=== PATIENT | female | born 1995 | race Caucasian/White ===

== ENCOUNTER → 2018-12-05 | Outpatient (CLI) | payer BC, OTHER ==
[~2018-12-05] MED LIST: ALBU1.25 IH; DOCU100C37 PO; IBUP-1780 PO; MULT-228 PO; OXYC-465 PO
--- NOTE | 2018-12-05 10:36 | Diagnostic Imaging Report ---
PROCEDURE: US Gallbladder. TECHNIQUE: Multiple real-time grayscale images were obtained over the right upper quadrant in various projections. INDICATION: Right upper quadrant pain. The liver is normal in size at 16.0 cm. No discrete liver mass is identified. The portal vein is patent and shows normal direction of flow. The gallbladder is without stones or sludge. No wall thickening or biliary ductal dilatation is identified. The pancreas is unremarkable. Right kidney is unremarkable. No calculi or hydronephrosis is identified. There is no ascites. IMPRESSION: Unremarkable gallbladder ultrasound. Dictated by: Dictated on workstation # [id number]
== END ==
LOC: RAD 07:46
PROVIDERS: ATTEND Obstetrics & Gynecology
DX: R10.11 Right upper quadrant pain (principal)
CPT/HCPCS: 76705

== ENCOUNTER 2019-03-08 10:19 | Outpatient (CLI) | payer BC ==
--- NOTE | 2019-03-08 10:27 | NUR ---
PAULO LUCERO presented to unit from ED, accompanied by family, with c/o RH NEGATIVE. Patient to room 315 while Rhogam is ordered and prepared.
--- NOTE | 2019-03-08 10:45 | NUR ---
Rhogam administered, see intervention.
--- NOTE | 2019-03-08 10:47 | NUR ---
Patient discharged at this time and ambulated from the unit accompanied by family. No signs or symptoms of distress noted.
== END 2019-03-08 10:47 | disposition home or self-care (01) ==
LOC: WSo 10:19
PROVIDERS: ATTEND Obstetrics & Gynecology
DX: Z31.82 Encounter for Rh incompatibility status (principal)
CPT/HCPCS: 96372

== ENCOUNTER 2019-04-28 13:43 | Outpatient (CLI) | payer BC ==
[~2019-04-28] VITALS: Ht 177.8 cm; Wt 78.9 kg
--- NOTE | 2019-04-28 13:30 | NUR ---
PAULO LUCERO presented to unit via ambulation from Dr. story, accompanied by mother, with c/o CONTRACTIONS. PAULO LUCERO weighed, gowned, voided, and to bed. EFHM and TOCO applied, VS taken. PAULO LUCERO oriented to bed controls, call light, TV, heat, and A/C controls.
[2019-04-28 13:40] VITALS: BP 118/72
[~2019-04-28 13:43] MED LIST changes: +D5 LR IV SOLUTION 1,000 ML IV ONE
--- NOTE | 2019-04-28 13:45 | NUR ---
Dr. Chino on unit. Notified of pt arrival. Pt had just been seen in office. Orders rec'd.
[2019-04-28 14:59] LABS: BASOPHILS % (AUTO) 0 % (0-10); EOSINOPHILS # (AUTO) 0.1 10^3/uL (0.0-0.3); EOSINOPHILS % (AUTO) 1 % (0-10); HEMATOCRIT 30 % (35-52); HEMOGLOBIN 9.8 G/DL (11.5-16.0); LYMPHOCYTES # (AUTO) 1.4 X 10^3 (1.0-4.0); LYMPHOCYTES % (AUTO) 20 % (12-44); MEAN CORPUSCULAR HEMOGLOBIN 29 PG (25-34); MEAN CORPUSCULAR HGB CONC 33 G/DL (32-36); MEAN CORPUSCULAR VOLUME 88 FL (80-99); MEAN PLATELET VOLUME 11.1 FL (7.4-10.4); MONOCYTES # (AUTO) 0.5 X 10^3 (0.0-1.0); MONOCYTES % (AUTO) 7 % (0-12); NEUTROPHILS # (AUTO) 5.1 X 10^3 (1.8-7.8); NEUTROPHILS % (AUTO) 72 % (42-75); PLATELET COUNT 132 10^3/uL (130-400); RED CELL DISTRIBUTION WIDTH 12.5 % (10.0-14.5)
[2019-04-28] MEDS ORDERED: D5 LR IV SOLUTION 1,000 ML IV SCH (15:00)
[2019-04-28 15:25] VITALS: BP 112/74
--- NOTE | 2019-04-28 18:30 | NUR ---
Discharge instructions explained to pt with copy provided to pt. Pt verbalizes understanding of instructions, signs to verify. Denies questions or concerns at this time. Ambulates off unit accompanied by mother to private vehicle with all personal belongings. No s/s of distress noted.
--- NOTE | 2019-04-29 08:04 | Physician Query-Final Dx ---
CATHY VILLAGOMEZ 04/29/19 0804: Clinic Account Progress/Dx Physician Query: Please give diagnosis Please include weeks of gestation Date of Service Apr 28, 2019 at 13:43 KALA ZIMMERMAN MD 04/29/19 1710: Clinic Account Progress/Dx DIAGNOSIS: Diagnosis 36 weeks with false labor CATHY VILLAGOMEZ Apr 29, 2019 08:04 KALA ZIMMERMAN MD Apr 29, 2019 17:10
== END 2019-04-28 18:30 | disposition home or self-care (01) ==
LOC: LDRP 13:43 → WSo 13:43
PROVIDERS: ATTEND Obstetrics & Gynecology
DX: O47.03 False labor before 37 completed weeks of gestation, third trimester (principal); Z3A.36 36 weeks gestation of pregnancy
CPT/HCPCS: 36415; 85025; 96360; 96361; 99213

== ENCOUNTER 2019-05-09 10:20 | Inpatient (IN) | payer BC ==
[2019-05-09] VITALS (38 sets, daily range): BP systolic 88–216; BP diastolic 49–93
[~2019-05-09] VITALS: Ht 175.3 cm; Wt 78.9 kg
[~2019-05-09 10:20] MED LIST changes: -D5 LR IV SOLUTION 1,000 ML IV ONE
--- NOTE | 2019-05-09 10:20 | NUR ---
PAULO LUCERO presented to unit via ambulation from ED, accompanied by s/o, with c/o PRESSURE 38 WKS PREG. PAULO LUCERO weighed, gowned, voided, and to bed. EFHM and TOCO applied, VS taken. PAULO LUCERO oriented to bed controls, call light, TV, heat, and A/C controls.
[2019-05-09] MEDS ORDERED: D5 LR IV SOLUTION 1,000 ML IV SCH (11:07)
[2019-05-09] MEDS ORDERED: MINERAL OIL CONCENTRATE 99.9% 15 ML UDC TOP PRN (11:15)
[2019-05-09 11:41] LABS: BILIRUBIN,URINE NEGATIVE (NEGATIVE); CLARITY,URINE CLEAR; COLOR,URINE YELLOW; GLUCOSE, URINE (UA) NEGATIVE (NEGATIVE); KETONES,URINE NEGATIVE (NEGATIVE); LEUKOCYTE ESTERASE ,URINE NEGATIVE (NEGATIVE); NITRITE,URINE NEGATIVE (NEGATIVE); PH,URINE 7 (5-9); PROTEIN,URINE NEGATIVE (NEGATIVE); UROBILINOGEN,URINE NORMAL (NORMAL)
[2019-05-09 11:42] LABS: BASOPHILS % (AUTO) 0 % (0-10); EOSINOPHILS # (AUTO) 0.1 10^3/uL (0.0-0.3); EOSINOPHILS % (AUTO) 1 % (0-10); HEMATOCRIT 31 % (35-52); HEMOGLOBIN 10.2 G/DL (11.5-16.0); LYMPHOCYTES # (AUTO) 1.2 X 10^3 (1.0-4.0); LYMPHOCYTES % (AUTO) 18 % (12-44); MEAN CORPUSCULAR HEMOGLOBIN 29 PG (25-34); MEAN CORPUSCULAR HGB CONC 33 G/DL (32-36); MEAN CORPUSCULAR VOLUME 88 FL (80-99); MONOCYTES # (AUTO) 0.5 X 10^3 (0.0-1.0); MONOCYTES % (AUTO) 7 % (0-12); NEUTROPHILS # (AUTO) 5.2 X 10^3 (1.8-7.8); NEUTROPHILS % (AUTO) 74 % (42-75); PLATELET COUNT 161 10^3/uL (130-400); RED CELL DISTRIBUTION WIDTH 12.4 % (10.0-14.5)
[2019-05-09 11:47] LABS: BACTERIA,URINE TRACE /HPF
[2019-05-09] MEDS ORDERED: LACTATED RINGERS 1,000 ML IV ONE ×2 (11:57→14:24)
[2019-05-09] MEDS ORDERED: SUFENTA 0.6MCG/ML BUPIVA 0.125 100 ML ONE (12:41)
[2019-05-09] MEDS ORDERED: fentaNYL INJECTION 100 MCG/2 ML AMP ONE (13:41)
[2019-05-09] MEDS ORDERED: CATHETER FLUSH 10 ML SYR IV SCH ×2 (14:00→22:00)
[2019-05-09] MEDS ORDERED: NALOXONE 0.4 MG/ML 1 ML (NARCAN) VIAL IV PRN ×2 (14:30)
[2019-05-09] MEDS ORDERED: ONDANSETRON 4 MG/2 ML (SDV) Z0FRAN IV PRN (14:30)
[2019-05-09] MEDS ORDERED: EPIDURAL (SUFENTA 0.6MCG/ML BUPIVA 0.125%) 100 ML BAG EPI PRN (14:30)
[2019-05-09] MEDS ORDERED: METOCLOPRAMIDE INJ 10 MG/2 ML (REGLAN) IV PRN (14:30)
[2019-05-09] MEDS ORDERED: diphenhydrAMINE 50 MG/ML INJ (BENADRYL) IV PRN (14:30)
[2019-05-09] MEDS ORDERED: LIDOCAINE/EPI 2% 1:200,00 (XYLOCAINE) 10 ML VIAL ONE (17:04)
[2019-05-09] MEDS ORDERED: OXYTOCIN/NORMAL SALINE 500 ML IV ONE (17:04)
[2019-05-09] MEDS ORDERED: OXYTOCIN/NORMAL SALINE 500 ML IV SCH ×2 (17:15→19:32)
--- NOTE | 2019-05-09 17:30 | NUR ---
DR ASHTON HERE. SVE BY DR ASHTON. 7-8CM. REPOSTIONED TO LEFT SIDE. S/O AT BEDSIDE.
--- NOTE | 2019-05-09 17:47 | History & Physical-OB ---
OB - Chief Complaint & HPI Date/Time Date of Admission: Date of Admission: May 09, 2019 at 10:55 am Date seen by a Provider: May 09, 2019 Time Seen by a Provider: 11:30 Chief Complaint/History Hx : 2 Hx Para: 1 Expected Date of Delivery: May 24, 2019 Gestational Age in Weeks: 37 Gestational Age in Days: 6 Other reason for admission: Patient of Dr. Chino who is unavailable presents 4-5 cm, with irregular contractions. Reports history of going quickly in labor and living 45 min away. Admission Nurse Assessment Rev: Yes Allergies and Home Medications Allergies Coded Allergies: vancomycin (Verified Allergy, Intermediate, ANAPHYLAXIS, 05/14/15) Lips swelled, head itching. Infusion stopped. penicillin (Verified Allergy, Mild, 03/22/15) swelling Home Medications Albuterol Sulfate 1.25 Mg/3 Ml Vial.neb, 1.25 MG IH UD Prescribed by: ALBER FUENTES on 04/19/15 1203 Docusate Sodium 100 Mg Capsule, 100 MG PO BID Prescribed by: KALA HOLLAND on 05/14/15 0750 Multivitamin 1 Each Tab.chew, 1 EACH PO DAILY Prescribed by: ALBER FUENTES on 04/19/15 1203 Patient Home Medication List Home Medication List Reviewed: Yes OB - History Hx of Present Care: Yes Ultrasounds: Normal mid trimester US Obstetrical Complications: None Medical Complications: None Delivery History Hx Blood Disorders: No Adverse Rxn to Tranfusion: No Patient Past Medical History n/a Social History/Family History Recent Infectious Disease Expo: No Alcohol Use: Denies Use Recreational Drug Use: No Immunizations Hepatitis A: Yes Hepatitis B: Yes Tetanus Booster (TDap): Less than 5yrs Date of Influenza Vaccine: Apr 19, 2014 OB - Admission Exam Physical Exam HEENT: NCAT Heart: Rhythm Normal Lungs: Clear Extremities: Normal Reflexes: Normal Cervical Dilatation: 5cm Effacement: 75% Station: -1 Membranes: Intact Heart Rate: 130's Accelerations: Accelerations Present Decelerations: No Decelerations Short Term Variability: Present Care Home Variability: Average (6-25) Contractions on Admission: 6-10 Minutes Apart Intensity: Moderate Labs Laboratory Tests Test 05/09/19 10:50 05/09/19 11:20 Range/Units Urine Color YELLOW Urine Clarity CLEAR Urine pH 7 5-9 Urine Specific [place] 1.010 L 1.016-1.022 Urine Protein NEGATIVE NEGATIVE Urine Glucose (UA) NEGATIVE NEGATIVE Urine Ketones NEGATIVE NEGATIVE Urine Nitrite NEGATIVE NEGATIVE Urine Bilirubin NEGATIVE NEGATIVE Urine Urobilinogen NORMAL NORMAL MG/DL Urine Leukocyte Esterase NEGATIVE NEGATIVE Urine RBC (Auto) NEGATIVE NEGATIVE Urine RBC NONE /HPF Urine WBC 2-5 /HPF Urine Squamous Epithelial Cells 2-5 /HPF Urine Crystals NONE /LPF Urine Bacteria TRACE /HPF Urine Casts NONE /LPF Urine Mucus NEGATIVE /LPF Urine Culture Indicated NO White Blood Count 7.0 4.3-11.0 10^3/uL Red Blood Count 3.52 L 4.35-5.85 10^6/uL Hemoglobin 10.2 L 11.5-16.0 G/DL Hematocrit 31 L 35-52 % Mean Corpuscular Volume 88 80-99 FL Mean Corpuscular Hemoglobin 29 25-34 PG Mean Corpuscular Hemoglobin Concent 33 32-36 G/DL Red Cell Distribution Width 12.4 10.0-14.5 % Platelet Count 161 130-400 10^3/uL Mean Platelet Volume 11.0 H 7.4-10.4 FL Neutrophils (%) (Auto) 74 42-75 % Lymphocytes (%) (Auto) 18 12-44 % Monocytes (%) (Auto) 7 0-12 % Eosinophils (%) (Auto) 1 0-10 % Basophils (%) (Auto) 0 0-10 % Neutrophils # (Auto) 5.2 1.8-7.8 X 10^3 Lymphocytes # (Auto) 1.2 1.0-4.0 X 10^3 Monocytes # (Auto) 0.5 0.0-1.0 X 10^3 Eosinophils # (Auto) 0.1 0.0-0.3 10^3/uL Basophils # (Auto) 0.0 0.0-0.1 10^3/uL OB - Assessment/Plan/Diagnosis Assessment Assessment: active labor Admission Dx 23 yo @ 37.6 weeks Active labor GBS neg Admission Status: Inpatient Order (span 2 midnights) Reason for Inpatient Admission: Active labor at term Plan Plan: Expectant Management SOBIA ASHTON DO May 09, 2019 5:47 pm
--- NOTE | 2019-05-09 19:00 | NUR ---
Parsons catheter not in place as this rn assumes care.
--- NOTE | 2019-05-09 19:37 | OB Labor & Delivery Record ---
L&D History Date of Service Date of Service: May 09, 2019 History Expected Date of Delivery: May 24, 2019 Gestational Age in Weeks: 37 Hx : 2 Hx Para: 1 Complications Events: Routine care Operative Indications (Cesarea: N/A-Vaginal Delivery Intrapartal Events: None L&D Stage1 Stage One Onset of Labor - Date: May 09, 2019 Monitors and Tracing Skilled Nursing Variability: Average (6-10) Short Term Variability: Present Presentation: Vertex Vital Signs VS - Last 72 Hours, by Label 05/09/19 05/09/19 05/09/19 05/09/19 10:40 12:05 13:10 13:15 Temp 98.4 Pulse 111 100 125 120 Resp 20 20 20 20 B/P (MAP) 121/81 (94) 126/76 (93) 136/92 (107) 130/90 (103) O2 Delivery Room Air Room Air Room Air Room Air 05/09/19 05/09/19 05/09/19 05/09/19 13:20 13:25 13:30 13:35 Pulse 99 88 91 95 Resp 20 20 20 20 B/P (MAP) 100/59 (73) 88/49 (62) 130/93 (105) 129/81 (97) Pulse Ox 99 98 99 O2 Delivery Room Air Room Air Room Air Room Air 05/09/19 05/09/19 05/09/19 05/09/19 13:40 13:45 13:50 13:55 Pulse 99 100 96 86 Resp 20 20 20 18 B/P (MAP) 115/66 (82) 89/53 (65) 90/55 (67) 108/66 (80) Pulse Ox 99 99 97 97 O2 Delivery Room Air Room Air Room Air Room Air 05/09/19 05/09/19 05/09/19 05/09/19 14:00 14:05 14:10 14:15 Pulse 84 85 99 99 Resp 18 18 18 18 B/P (MAP) 121/67 (85) 108/76 (87) 130/73 (92) 113/62 (79) Pulse Ox 99 100 100 100 O2 Delivery Room Air Room Air Room Air Room Air 05/09/19 05/09/19 05/09/19 05/09/19 14:30 14:45 15:00 15:15 Pulse 79 79 78 78 Resp 18 18 18 18 B/P (MAP) 216/91 (132) 108/63 (78) 105/67 (80) 110/73 (85) Pulse Ox 100 100 100 100 O2 Delivery Room Air Room Air Room Air Room Air 05/09/19 05/09/19 05/09/19 05/09/19 15:30 15:45 16:00 16:15 Pulse 85 82 80 81 Resp 18 18 18 18 B/P (MAP) 118/76 (90) 112/74 (87) 110/70 (83) 119/77 (91) Pulse Ox 98 99 100 100 O2 Delivery Room Air Room Air Room Air Room Air 05/09/19 05/09/19 05/09/19 05/09/19 16:30 16:45 17:10 17:20 Temp 98.8 Pulse 85 83 82 93 Resp 18 18 18 18 B/P (MAP) 114/72 (86) 121/80 (94) 122/73 (89) 111/70 (84) Pulse Ox 100 100 100 100 O2 Delivery Room Air Room Air Room Air Room Air 05/09/19 05/09/19 05/09/19 05/09/19 17:35 17:52 18:05 18:25 Pulse 81 82 82 99 Resp 18 18 18 18 B/P (MAP) 116/72 (87) 126/76 (93) 121/72 (88) 134/86 (102) Pulse Ox 100 100 100 100 O2 Delivery Room Air Room Air Room Air Room Air 05/09/19 05/09/19 18:35 19:05 Pulse 94 90 Resp 20 20 B/P (MAP) 133/77 (95) 126/72 (90) Pulse Ox 100 O2 Delivery Room Air Room Air Rupture of Membranes Spontaneous Ruture of Membrane: No Amniotic Membrane Rupture Time: 14:15 Amniotic Membrane Fluid Desc.: Clear Vaginal Bleeding Description: Normal Show Induction/Anesthesia Epidural Cath Placement - Time: 1326 Progress/Notes Patient requested epidural and received due to discomfort with contractions and more pressure. After patient was comfortable AROM and Pitocin augmentation used to progress to complete and +2 station L&D Stage2 Stage Two Stage II Date: May 09, 2019 Monitors and Tracing Monitor Mode: External Monitor Accelerations: Uniform Monitor Decelerations: Variable Skilled Nursing Variability: Average (6-10) Short Term Variability: Present Position: Right Occiput Anterior Presentation: Vertex Cord Descript/Complications Cord Vessel Description: 3 Vessels Complications nuchal cord reduced x 1 Delivery Type Infant Delivery Method: Spontaneous Vaginal Anterior Shoulder: Right Episiotomy/Perineal Laceration Laceraction(s)/Extensions: Yes Episiotomy Description: Midline Degree (describe repair) midline episiotomy repaired using 3-0 rapide and 2-0 vicryl suture Condition of Infant Delivery 1 minute Comment: 9 5 minute Comment: 9 Notes Live female infant weight 7lbs 7oz Condition of Condition of : Living Exam: No Observed Abnormalities Resuscitation Resuscitation: N/A - Spontaneous Resp L&D Stage3 Stage Three Stage III Date: May 09, 2019 Pictocin Pitocin Administration Comment: 30 mu wide open at delivery of placenta Placenta Delivery Placenta Delivery: Spontaneous Delivery Summary Summary Estimated blood loss (mL): 300 Attending at delivery: Sobia Ashton DO Condition of Delivery Examined: Cervix Examined, Uterus Explored Post Hemorrhage: No Condition of Mother stable Condition of Infant (s) stable SOBIA ASHTON DO May 09, 2019 7:37 pm
[2019-05-09] MEDS ORDERED: DIBUCAINE (NUPERCAINAL) 1% OINT 30 GM TOP PRN (19:45)
[2019-05-09] MEDS ORDERED: MEASLES,MUMPS,RUBELLA 1 EA INJ SQ ONE (19:45)
[2019-05-09] MEDS ORDERED: BENZOCAINE/MENTHOL (DERMOPLAST) 56 ML CAN TP PRN (19:45)
[2019-05-09] MEDS ORDERED: TETANUS,DIPTH,PERTUSS P/F (BOOSTRIX) 0.5 ML VIAL IM ONE (19:45)
[2019-05-09] MEDS ORDERED: WITCH HAZEL(TUCKS) 40 EA JAR TOP PRN (19:45)
[2019-05-09] MEDS: IBUPROFEN 600 MG (MOTRIN) TAB PO SCH (19:55)
--- NOTE | 2019-05-09 21:35 | NUR ---
Epidural cath d/c tip in tact, site wnl and left O/A, asymptomatic per pt report, will cont to monitor.
--- NOTE | 2019-05-09 21:40 | NUR ---
Pericare pads changed, pt to room 310 via wc accompanied by this rn and family, oriented to call system and surroundings, denies needs or concerns, will cont to monitor.
[2019-05-09] MEDS: HYDROcodone/APAP 5 MG/325 MG (LORTAB) TAB PO PRN ×2 (22:43→23:30)
[2019-05-10] MEDS: IBUPROFEN 600 MG (MOTRIN) TAB PO SCH ×4 (02:19→19:52)
[2019-05-10 02:21] VITALS: BP 121/70
[2019-05-10 06:44] VITALS: BP 117/79
[2019-05-10 06:48] LABS: BASOPHILS % (AUTO) 0 % (0-10); EOSINOPHILS # (AUTO) 0.1 10^3/uL (0.0-0.3); EOSINOPHILS % (AUTO) 1 % (0-10); HEMATOCRIT 31 % (35-52); HEMOGLOBIN 10.2 G/DL (11.5-16.0); LYMPHOCYTES # (AUTO) 2.2 X 10^3 (1.0-4.0); LYMPHOCYTES % (AUTO) 19 % (12-44); MEAN CORPUSCULAR HEMOGLOBIN 28 PG (25-34); MEAN CORPUSCULAR HGB CONC 33 G/DL (32-36); MEAN CORPUSCULAR VOLUME 88 FL (80-99); MEAN PLATELET VOLUME 10.3 FL (7.4-10.4); MONOCYTES # (AUTO) 0.8 X 10^3 (0.0-1.0); MONOCYTES % (AUTO) 7 % (0-12); NEUTROPHILS # (AUTO) 8.4 X 10^3 (1.8-7.8); NEUTROPHILS % (AUTO) 73 % (42-75); PLATELET COUNT 154 10^3/uL (130-400); RED CELL DISTRIBUTION WIDTH 12.6 % (10.0-14.5); WHITE BLOOD COUNT 11.5 10^3/uL (4.3-11.0)
[2019-05-10 07:20] VITALS: BP 132/97
[2019-05-10] MEDS: FERROUS SULF 325 MG (IRON) TAB PO SCH (07:20)
[2019-05-10] MEDS: PRENATAL VITAMIN 1 EA TAB PO SCH (07:20)
[2019-05-10] MEDS: DOCUSATE SODIUM 100 MG (COLACE) CAP PO SCH ×2 (07:20→19:52)
--- NOTE | 2019-05-10 07:20 | NUR ---
lights dimmed, awake, sitting up resting in bed with swaddled and placed at her feet . s/o sleeping in bed. vitals taken. AM meds given see emar. pericare ointment, spray, and tucks given as ordered. verbalized understanding of administration encouraged patient to notify me for help or questions. denies further need. fresh ice water placed at bedside.
--- NOTE | 2019-05-10 09:31 | Postpartum Progress Note ---
Note Note Day # 1 Subjective: Patient is without complaints. Ambulating, voiding. Tolerating a regular diet without nausea or vomiting. Normal lochia. Pain is well controlled with oral pain medications. Objective: Physical Exam: General - Alert and oriented, no apparent distress Abdomen - Soft, appropriately tender to palpation, non-distended, fundus firm at umbilicus Extremities - no edema, negative Judy's bilaterally Assessment: PPD 1 NVD Plan: Routine care. Encourage breast feeding. Encourage ambulation. Ferrous sulfate supplementation. Plan for discharge tomorrow Vitals - Labs Vital Signs - I&O Vital Signs Date Time Temp Pulse Resp B/P (MAP) Pulse Ox O2 Delivery O2 Flow Rate FiO2 05/10/19 07:20 98.8 70 20 132/97 (109) Room Air 05/10/19 06:44 97.8 82 18 117/79 (92) 99 Room Air 05/10/19 02:21 98.7 82 18 121/70 (87) 98 Room Air 05/09/19 20:15 98.9 67 115/57 (76) 05/09/19 20:00 99.2 81 117/63 (81) Room Air 05/09/19 19:45 99.5 83 134/83 (100) Room Air 05/09/19 19:30 99.7 98 18 130/69 (89) Room Air 05/09/19 19:05 90 20 126/72 (90) Room Air 05/09/19 19:05 90 126/72 (90) 05/09/19 18:35 94 20 133/77 (95) 100 Room Air 05/09/19 18:25 99 18 134/86 (102) 100 Room Air 05/09/19 18:05 82 18 121/72 (88) 100 Room Air 05/09/19 17:52 82 18 126/76 (93) 100 Room Air 05/09/19 17:35 81 18 116/72 (87) 100 Room Air 05/09/19 17:20 98.8 93 18 111/70 (84) 100 Room Air 05/09/19 17:10 82 18 122/73 (89) 100 Room Air 05/09/19 16:45 83 18 121/80 (94) 100 Room Air 05/09/19 16:30 85 18 114/72 (86) 100 Room Air 05/09/19 16:15 81 18 119/77 (91) 100 Room Air 05/09/19 16:00 80 18 110/70 (83) 100 Room Air 05/09/19 15:45 82 18 112/74 (87) 99 Room Air 05/09/19 15:30 85 18 118/76 (90) 98 Room Air 05/09/19 15:15 78 18 110/73 (85) 100 Room Air 05/09/19 15:00 78 18 105/67 (80) 100 Room Air 05/09/19 14:45 79 18 108/63 (78) 100 Room Air 05/09/19 14:30 79 18 216/91 (132) 100 Room Air 05/09/19 14:15 99 18 113/62 (79) 100 Room Air 05/09/19 14:10 99 18 130/73 (92) 100 Room Air 05/09/19 14:05 85 18 108/76 (87) 100 Room Air 05/09/19 14:00 84 18 121/67 (85) 99 Room Air 05/09/19 13:55 86 18 108/66 (80) 97 Room Air 05/09/19 13:50 96 20 90/55 (67) 97 Room Air 05/09/19 13:45 100 20 89/53 (65) 99 Room Air 05/09/19 13:40 99 20 115/66 (82) 99 Room Air 05/09/19 13:35 95 20 129/81 (97) 99 Room Air 05/09/19 13:30 91 20 130/93 (105) 98 Room Air 05/09/19 13:25 88 20 88/49 (62) 99 Room Air 05/09/19 13:20 99 20 100/59 (73) Room Air 05/09/19 13:15 120 20 130/90 (103) Room Air 05/09/19 13:10 125 20 136/92 (107) Room Air 05/09/19 12:05 100 20 126/76 (93) Room Air 05/09/19 10:40 98.4 111 20 121/81 (94) Room Air I & O 05/10/19 07:00 Intake Total 1000 ml Balance 1000 ml Labs Laboratory Tests 05/09/19 10:50: Urine Color YELLOW, Urine Clarity CLEAR, Urine pH 7, Urine Specific [place] 1.010L, Urine Protein NEGATIVE, Urine Glucose (UA) NEGATIVE, Urine Ketones NEGATIVE, Urine Nitrite NEGATIVE, Urine Bilirubin NEGATIVE, Urine Urobilinogen NORMAL, Urine Leukocyte Esterase NEGATIVE, Urine RBC (Auto) NEGATIVE, Urine RBC NONE, Urine WBC 2-5, Urine Squamous Epithelial Cells 2-5, Urine Crystals NONE, Urine Bacteria TRACE, Urine Casts NONE, Urine Mucus NEGATIVE, Urine Culture Indicated NO 05/09/19 11:20: White Blood Count 7.0, Red Blood Count 3.52L, Hemoglobin 10.2L, Hematocrit 31L, Mean Corpuscular Volume 88, Mean Corpuscular Hemoglobin 29, Mean Corpuscular Hemoglobin Concent 33, Red Cell Distribution Width 12.4, Platelet Count 161, Mean Platelet Volume 11.0H, Neutrophils (%) (Auto) 74, Lymphocytes (%) (Auto) 18, Monocytes (%) (Auto) 7, Eosinophils (%) (Auto) 1, Basophils (%) (Auto) 0, Neutrophils # (Auto) 5.2, Lymphocytes # (Auto) 1.2, Monocytes # (Auto) 0.5, Eosinophils # (Auto) 0.1, Basophils # (Auto) 0.0 05/10/19 06:37: White Blood Count 11.5H, Red Blood Count 3.59L, Hemoglobin 10.2L, Hematocrit 31L , Mean Corpuscular Volume 88, Mean Corpuscular Hemoglobin 28, Mean Corpuscular Hemoglobin Concent 33, Red Cell Distribution Width 12.6, Platelet Count 154, Mean Platelet Volume 10.3, Neutrophils (%) (Auto) 73, Lymphocytes (%) (Auto) 19, Monocytes (%) (Auto) 7, Eosinophils (%) (Auto) 1, Basophils (%) (Auto) 0, Neutrophils # (Auto) 8.4H, Lymphocytes # (Auto) 2.2, Monocytes # (Auto) 0.8, Eosinophils # (Auto) 0.1, Basophils # (Auto) 0.0 SOBIA ASHTON DO May 10, 2019 09:30
[2019-05-10] MEDS: HYDROcodone/APAP 5 MG/325 MG (LORTAB) TAB PO PRN (09:35)
[2019-05-10] MEDS ORDERED: Benzocaine/Menthol TP (09:37)
[2019-05-10] MEDS ORDERED: IBUP-844 PO (09:37)
[2019-05-10] MEDS ORDERED: FERR325T18 PO (09:37)
[2019-05-10] MEDS ORDERED: ACHD5005 PO (09:37)
[2019-05-10] MEDS ORDERED: DIBU30OI TOP (09:37)
[2019-05-10] MEDS ORDERED: DOCU100C37 PO (09:37)
--- NOTE | 2019-05-10 09:38 | Discharge Inst-Women's Service ---
Discharge Inst-Women's Serv Depart Medication/Instructions New, Converted or Re-Newed RX: RX on Chart Final Diagnosis PPD 2 NVD Problems Reviewed?: Yes Consults/Follow Up Additional Follow Up: Yes Orders/Referrals Dr. Chino in 6 weeks Activity Activity: Activity as Tolerated Driving Instructions: No Driving for 1 Week NO SMOKING: NO SMOKING Nothing Inside Vagina: No Douching, No [place], No Tampons Diet Discharge Diet: No Restrictions Symptoms to Report to : Bleeding Excessive, Pain Increased, Fever Over 101 Degrees F, Vaginal Bleeding Increase, Questions/Concerns For Any Problems or Questions: Contact Your Physician SOBIA ASHTON DO May 10, 2019 09:38
[2019-05-10 12:45] VITALS: BP 126/90
--- NOTE | 2019-05-10 13:31 | Anesthesia-Regional Post-Op ---
Regional Patient Condition Mental Status: Alert, Oriented x3 Circulation: Same as Pre-Op Headache: Absent Sensation: Full Recovery Motor Block: Absent Post Op Complications Complications None Follow Up Care/Instructions Patient Instructions None needed. Anesthesia/Patient Condition Patient is doing well, no complaints, stable vital signs, no apparent adverse anesthesia problems. No complications reported per nursing. JUSTYN ANGELES CRNA May 10, 2019 13:31
[2019-05-10 15:42] VITALS: BP 126/90
--- NOTE | 2019-05-10 19:47 | NUR ---
pt sitting up in bed. assessment completed. family and friends at bedside. pt denies any needs. will continue to monitor.
[2019-05-10 19:54] VITALS: BP 131/88
[2019-05-11] MEDS: IBUPROFEN 600 MG (MOTRIN) TAB PO SCH ×2 (02:04→09:55)
[2019-05-11 02:25] VITALS: BP 123/80
--- NOTE | 2019-05-11 09:25 | Postpartum Progress Note ---
Note Note Day # 1 Subjective: Patient is without complaints. Ambulating, voiding. Tolerating a regular diet without nausea or vomiting. Normal lochia. Pain is well controlled with oral pain medications. Objective: Physical Exam: General - Alert and oriented, no apparent distress Abdomen - Soft, appropriately tender to palpation, non-distended, fundus firm at umbilicus Extremities - no edema, negative Judy's bilaterally Assessment: PPD 2 Plan: Routine care. Encourage breast feeding. Encourage ambulation. Ferrous sulfate supplementation. Plan for discharge today Vitals - Labs Vital Signs - I&O Vital Signs Date Time Temp Pulse Resp B/P (MAP) Pulse Ox O2 Delivery O2 Flow Rate FiO2 05/11/19 02:25 97.4 72 18 123/80 (94) Room Air 05/10/19 19:54 98.5 74 18 131/88 (102) Room Air 05/10/19 12:45 98.7 77 20 126/90 (102) Room Air Labs Microbiology 05/09/19 Urine Culture - Final, Complete NO GROWTH SOBIA ASHTON DO May 11, 2019 09:25
[2019-05-11] MEDS: PRENATAL VITAMIN 1 EA TAB PO SCH (09:54)
[2019-05-11] MEDS: DOCUSATE SODIUM 100 MG (COLACE) CAP PO SCH (09:54)
[2019-05-11] MEDS: FERROUS SULF 325 MG (IRON) TAB PO SCH (09:54)
[2019-05-11 09:57] VITALS: BP 137/96
--- NOTE | 2019-05-11 10:00 | NUR ---
PT IN BED. MEDS GIVEN PO; SEE EMAR FOR FURTHER. VS OBTAINED. INITIAL SHIFT ASSESSMENT COMPLETED; SEE INTERVENTION. PLAN TO DISCHARGE THIS AM. NO NEEDS OR QUESTIONS VOICED.
[2019-05-11] MEDS ORDERED: TETANUS,DIPTH,PERTUSS P/F (BOOSTRIX) 0.5 ML VIAL IM ONE (10:04)
--- NOTE | 2019-05-11 10:45 | NUR ---
DISCHARGE PAPERS PROVIDED AND REVIEWED WITH PT, PT VERBALIZES UNDERSTANDING AND DENIES ANY QUESTIONS AT THIS TIME. PAPER SIGNED. PRESCRIPTIONS ALSO PROVIDED AT THIS TIME.
--- NOTE | 2019-05-11 11:13 | NUR ---
PT DISCHARGED FROM -310 TO PERSONAL AUTO VIA AMBULATORY IN STABLE CONDITION ACC BY THIS RN, S/O AND INFANT.
== END 2019-05-11 11:13 | disposition home or self-care (01) | DRG 807 ==
LOC: WSo 10:20 → LDRP 10:20 → WSo 10:55 → LDRP 21:40
PROVIDERS: ADMIT Obstetrics & Gynecology; ATTEND Obstetrics & Gynecology
PROC: 10E0XZZ Delivery of Products of Conception, External Approach (ICD-10-PCS; principal; 2019-05-09)
PROC: 0W8NXZZ Division of Female Perineum, External Approach (ICD-10-PCS; 2019-05-09)
DX: O69.81X0 Labor and delivery complicated by cord around neck, without compression, not applicable or unspecified (principal); Z37.0 Single live birth; Z3A.37 37 weeks gestation of pregnancy; Z23 Encounter for immunization
CPT/HCPCS: 36415; 81000; 85025; 86850; 86900; 86901; 87088; 90715; 99212

== ENCOUNTER 2020-09-09 05:50 | Outpatient (RCR) | payer BC ==
[~2020-09-09] VITALS: Ht 177 cm; Wt 61.8 kg
[~2020-09-09 05:50] MED LIST changes: +ACHD5005 PO; +Benzocaine/Menthol TP; +DIBU30OI TOP; +FERR325T18 PO; +IBUP-844 PO; -OXYC-465 PO; +OXYC-556 PO
== END 2020-09-09 11:37 | disposition home or self-care (01) ==
LOC: PREOP 05:50
PROVIDERS: ATTEND Obstetrics & Gynecology
DX: Z01.812 Encounter for preprocedural laboratory examination (principal); N93.8 Other specified abnormal uterine and vaginal bleeding

== ENCOUNTER 2020-09-17 10:00 | Day surgery (SDC) | payer BC ==
[2020-09-17] VITALS (9 sets, daily range): BP systolic 97–120; BP diastolic 60–86
[~2020-09-17] VITALS: Ht 175 cm; Wt 63.0 kg
[2020-09-17] MEDS ORDERED: SEVOFLURANE (ULTANE) 15 ML INHAL SOLN ONE (10:25)
[2020-09-17] MEDS ORDERED: MIDAZOLAM 2 MG/2 ML (VERSED) VIAL ONE (10:25)
[2020-09-17] MEDS ORDERED: fentaNYL INJECTION 100 MCG/2 ML AMP ONE (10:25)
[2020-09-17] MEDS ORDERED: ONDANSETRON 4 MG/2 ML (SDV) Z0FRAN ONE (10:25)
[2020-09-17] MEDS ORDERED: ROCURONIUM 10 MG/ML 5 ML SYRINGE IV ONE (10:25)
[2020-09-17] MEDS ORDERED: LIDOCAINE PF 2% 5 ML (XYLOCAINE) VIAL ONE (10:25)
[2020-09-17] MEDS ORDERED: proPOfol 200 MG/20 ML (DIPRIVAN) VIAL IV ONE (10:25)
[2020-09-17 10:59] LABS: BASOPHILS % (AUTO) 0 % (0-10); EOSINOPHILS % (AUTO) 1 % (0-10); HEMATOCRIT 39 % (35-52); HEMOGLOBIN 13.3 g/dL (11.5-16.0); LYMPHOCYTES # (AUTO) 1.3 10^3/uL (1.0-4.0); LYMPHOCYTES % (AUTO) 43 % (12-44); MEAN CORPUSCULAR HEMOGLOBIN 30 pg (25-34); MEAN CORPUSCULAR HGB CONC 34 g/dL (32-36); MEAN CORPUSCULAR VOLUME 89 fL (80-99); MEAN PLATELET VOLUME 11.1 fL (9.0-12.2); MONOCYTES # (AUTO) 0.2 10^3/uL (0.0-1.0); MONOCYTES % (AUTO) 8 % (0-12); NEUTROPHILS # (AUTO) 1.4 10^3/uL (1.8-7.8); NEUTROPHILS % (AUTO) 47 % (42-75); PLATELET COUNT 123 10^3/uL (130-400)
[2020-09-17] MEDS ORDERED: ONDANSETRON 4 MG/2 ML (SDV) Z0FRAN IVP PRN (11:00)
[2020-09-17] MEDS ORDERED: D5 LR IV SOLUTION 1,000 ML IV SCH (11:00)
[2020-09-17] MEDS ORDERED: ESTROGENS CONJ INJECTION 25 MG in WATER (STERILE) FOR INJECTION 5 ML IV ONE (11:00)
[2020-09-17] MEDS ORDERED: HYDROcodone/APAP 10 MG/325 MG (LORTAB) TAB PO PRN (11:00)
[2020-09-17] MEDS ORDERED: KETOROLAC 30 MG/ML VIAL IVP ONE (11:00)
[2020-09-17] MEDS ORDERED: fentaNYL INJECTION 100 MCG/2 ML AMP IVP PRN (11:00)
[2020-09-17] MEDS ORDERED: LACTATED RINGERS 1,000 ML IV PRN (11:00)
[2020-09-17] MEDS ORDERED: LEVOFLOXACIN 250 MG/50 ML IVPB 50 ML IV ONE (11:00)
[2020-09-17] MEDS ORDERED: ETON1VAG8 VG (11:08)
--- NOTE | 2020-09-17 13:30 | Progress Note-Pre Operative ---
Pre-Operative Progress Note H&P Reviewed The H&P was reviewed, patient examined and no changes noted. Date Seen by Provider: Sep 17, 2020 Time Seen by Provider: 13:30 Date H&P Reviewed: Sep 17, 2020 Time H&P Reviewed: 13:00 Pre-Operative Diagnosis: Abnormal uterine bleeding with ultrasound consistent with endometrial polyp KALA ZIMMERMAN MD Sep 17, 2020 13:30
--- NOTE | 2020-09-17 13:31 | Progress Note-Post Operative ---
Post-Operative Progess Note Surgeon (s)/Letter Carrier (s) Surgeon KALA ZIMMERMAN MD Letter Carrier: None Pre-Operative Diagnosis Abnormal uterine bleeding with ultrasound consistent with endometrial polyp Post-Operative Diagnosis Same with pathology pending Procedure & Operative Findings Date of Procedure 09/17/20 Procedure Performed/Findings Hysteroscopy with directed biopsy and D&C Anesthesia Type GETA Estimated Blood Loss Estimated blood loss (mL): Minimal Specimens/Packing Specimens Removed Directed endometrial biopsy and endometrial curettings KALA ZIMMERMAN MD Sep 17, 2020 13:31
--- NOTE | 2020-09-17 13:33 | Discharge Inst-Surgical ---
Discharge Inst-Surgical Depart Medication/Instructions New, Converted or Re-Newed RX: Other Consults/Follow Up Patient Instructions: As directed Orders & Referrals Follow Up Appt: Call to make follow up appt. for patient in 2 weeks. Activity: Rest for 24 hours, than as tolerated. Continue NuvaRing replaced with new ring today or tomorrow Use Motrin as needed up to 800 mg every 6 hours as needed Diet: As tolerated shower or tub bathe as desired. No driving for 24 hours, no alcoholic beverages for 24 hours, and nothing per vagina (no tampons, douching, or intercoarse) for 2 weeks. Patient to return to the clinic as soon as possible for: Temperature greater than 101F, Severe Pain, Foul discharge from incision or vagina, Excessive Bleeding (more than a period). Activity Activity as Tolerated: No Diet Discharge Diet: No Restrictions KALA ZIMMERMAN MD Sep 17, 2020 13:33
[2020-09-17] MEDS ORDERED: HYDROmorphone 2 MG/ML VIAL (DILAUDID) IV ONE (13:45)
[2020-09-17] MEDS ORDERED: morphine INJ 10 MG/ML 1ML (SYR OR VIAL) IVP ONE (13:45)
[2020-09-17] MEDS ORDERED: WATER (STERILE) FOR INJECTION 10 ML ONE (13:47)
[2020-09-17] MEDS ORDERED: ESTROGENS CONJ IV 25 MG/5 ML (PREMARIN) VIAL ONE (13:47)
--- NOTE | 2020-09-17 14:20 | Anesthesia-General Post-Op ---
General Patient Condition Mental Status/LOC: Same as Preop Cardiovascular: Satisfactory Nausea/Vomiting: Absent Respiratory: Satisfactory Pain: Controlled Complications: Absent Post Op Complications Complications None Follow Up Care/Instructions Patient Instructions None needed. Anesthesia/Patient Condition Patient Condition Patient is doing well, no complaints, stable vital signs, no apparent adverse anesthesia problems. No complications reported per nursing. CHRISTA KAY CRNA Sep 17, 2020 14:20
--- NOTE | 2020-09-17 20:50 | OPERATIVE REPORT ---
DATE OF SERVICE: 09/17/2020 PREOPERATIVE DIAGNOSIS: Abnormal uterine bleeding with ultrasound finding suspicious for endometrial polyp. POSTOPERATIVE DIAGNOSIS: Abnormal uterine bleeding with ultrasound finding suspicious for endometrial polyp with pathology pending. OPERATIVE PROCEDURE: Hysteroscopy with directed biopsy and D and C. OPERATIVE DESCRIPTION: With the patient in the supine position under satisfactory general anesthesia, she was repositioned in the dorsal lithotomy position in the Silverio stirrups and prepped and draped in the usual fashion for vaginal surgery. Weighted speculum placed in posterior fornix of vagina, cervix exposed and grasped anteriorly with single tooth tenaculum. Uterus sounded to 12 cm with uterine sound. The cervix was then serially dilated with Sylvester dilators to accommodate a hysteroscope, which was introduced and using LR as a distending medium, the endometrial cavity was examined. There were numerous polypoid excrescences particularly near the left cornu inside the uterine cavity near the tubal ostium on the left. There was abundant endometrial tissue throughout the endometrial cavity. Dull Coat Mill Operator biopsies were taken from the polypoid-appearing lesions. Those were labeled as directed biopsy and sent to pathology for permanent section. The endometrial cavity was then sharply curettaged in all 4 quadrants to good uterine cry with removal of an additional aliquot of tissue. That tissue was sent to pathology as endometrial curettings. The hysteroscope was reintroduced, endometrial cavity was examined. There was no remaining abnormal appearing pathology and no significant bleeding. The hysteroscope was removed as was the tenaculum. There was slight bleeding from the puncture sites from the tenaculum. This was touched with silver nitrate to affect hemostasis. With hemostasis assured there with minimal bleeding from the cervical os, the procedure was complete. The speculum was removed from the vagina. Sponge and needle counts were correct. Blood loss was minimal. The patient tolerated the procedure well and was now uneventfully awakened from her general anesthesia and transferred to recovery room in stable condition with plans for discharge home PAR. Job ID: [id number] DocumentID: [id number] Dictated Date: 09/17/2020 13:29:41 School Aide Date: 09/17/2020 20:49:44 Dictated By: KALA ZIMMERMAN MD
== END 2020-09-17 15:30 ==
LOC: SDC 10:00
PROVIDERS: ATTEND Obstetrics & Gynecology
DX: N93.9 Abnormal uterine and vaginal bleeding, unspecified (principal); N92.1 Excessive and frequent menstruation with irregular cycle; J45.909 Unspecified asthma, uncomplicated; K21.9 Gastro-esophageal reflux disease without esophagitis; Z79.51 Long term (current) use of inhaled steroids; Z79.899 Other long term (current) drug therapy; Z88.0 Allergy status to penicillin; Z88.1 Allergy status to other antibiotic agents
CPT/HCPCS: 36415; 84703; 85025; 87081; 88305

== ENCOUNTER 2021-07-13 12:37 | Day surgery (SDC) | payer BC ==
[~2021-07-13] VITALS: Ht 17.5 cm; Wt 60.4 kg
[2021-07-13] VITALS (10 sets, daily range): BP systolic 90–124; BP diastolic 52–86
--- NOTE | 2021-07-13 07:10 | Progress Note-Pre Operative ---
Pre-Operative Progress Note H&P Reviewed The H&P was reviewed, patient examined and no changes noted. Date Seen by Provider: Jul 13, 2021 Time Seen by Provider: 14:00 Date H&P Reviewed: Jul 13, 2021 Time H&P Reviewed: 14:00 Pre-Operative Diagnosis: Abnormal uterine bleedingHistory of polyp KALA ZIMMERMAN MD Jul 13, 2021 07:10
--- NOTE | 2021-07-13 07:11 | Progress Note-Post Operative ---
Post-Operative Progess Note Surgeon (s)/Linux Systems Administrator (s) Surgeon KALA ZIMMERMAN MD Linux Systems Administrator: None Pre-Operative Diagnosis Abnormal uterine bleedingHistory of polyp Post-Operative Diagnosis Same with pathology pending Procedure & Operative Findings Date of Procedure 07/13/21 Procedure Performed/Findings Hysteroscopy with directed biopsy and D&C Anesthesia Type General Estimated Blood Loss Estimated blood loss (mL): Minimal Specimens/Packing Specimens Removed Directed endometrial biopsy/endometrial curettings/cervical biopsy KALA ZIMMERMAN MD Jul 13, 2021 07:11
--- NOTE | 2021-07-13 07:13 | Discharge Inst-Surgical ---
Discharge Inst-Surgical Depart Medication/Instructions New, Converted or Re-Newed RX: Transmitted to Pharmacy Consults/Follow Up Patient Instructions: As directed Orders & Referrals Follow Up Appt: Call to make follow up appt. for patient in 2 weeks. Activity: Rest for 24 hours, than as tolerated. Diet: As tolerated may shower or tub bathe as desired. No driving for 24 hours, no alcoholic beverages for 24 hours, and nothing per vagina (no tampons, douching, or intercoarse) for 2 weeks. Patient to return to the clinic as soon as possible for: Temperature greater than 101F, Severe Pain, Foul discharge from incision or vagina, Excessive Ble eding (more than a period). Activity Activity as Tolerated: No Diet Discharge Diet: No Restrictions KALA ZIMMERMAN MD Jul 13, 2021 07:13
[~2021-07-13 12:37] MED LIST changes: +CETI10TA49 PO; +D5 LR IV SOLUTION 1,000 ML IV SCH; +ETHY1TAB2 PO; +ETON1VAG8 VG; +KETOROLAC 30 MG/ML VIAL IVP ONE; +ONDANSETRON 4 MG/2 ML (SDV) Z0FRAN IVP PRN; +PREN1TAB79 PO; +fentaNYL INJ 100 MCG/2 ML AMP IVP PRN; +oxyCODONE/APAP 5/325MG (PERCOCET 5) TABLET PO PRN
[2021-07-13 13:26] LABS: BASOPHILS % (AUTO) 1 % (0-10); EOSINOPHILS # (AUTO) 0.1 10^3/uL (0.0-0.3); EOSINOPHILS % (AUTO) 2 % (0-10); HEMATOCRIT 39 % (35-52); HEMOGLOBIN 13.2 g/dL (11.5-16.0); LYMPHOCYTES # (AUTO) 0.8 10^3/uL (1.0-4.0); LYMPHOCYTES % (AUTO) 25 % (12-44); MEAN CORPUSCULAR HEMOGLOBIN 30 pg (25-34); MEAN CORPUSCULAR HGB CONC 34 g/dL (32-36); MEAN CORPUSCULAR VOLUME 89 fL (80-99); MEAN PLATELET VOLUME 11.4 fL (9.0-12.2); MONOCYTES # (AUTO) 0.3 10^3/uL (0.0-1.0); MONOCYTES % (AUTO) 9 % (0-12); NEUTROPHILS # (AUTO) 1.9 10^3/uL (1.8-7.8); NEUTROPHILS % (AUTO) 63 % (42-75); PLATELET COUNT 143 10^3/uL (130-400); WHITE BLOOD COUNT 3.1 10^3/uL (4.3-11.0)
[2021-07-13] MEDS ORDERED: LACTATED RINGERS 1,000 ML IV PRN (13:30)
[2021-07-13] MEDS ORDERED: MIDAZOLAM 2 MG/2 ML (VERSED) VIAL ONE (13:37)
[2021-07-13] MEDS ORDERED: fentaNYL INJ 100 MCG/2 ML AMP ONE (13:37)
[2021-07-13] MEDS ORDERED: proPOfol 200 MG/20 ML (DIPRIVAN) VIAL IV ONE (14:45)
[2021-07-13] MEDS ORDERED: ONDANSETRON 4 MG/2 ML (SDV) Z0FRAN ONE (14:45)
[2021-07-13] MEDS ORDERED: LIDOCAINE PF 2% 5 ML (XYLOCAINE) VIAL ONE (14:45)
[2021-07-13] MEDS ORDERED: SEVOFLURANE (ULTANE) 15 ML INHAL SOLN ONE (14:45)
[2021-07-13] MEDS ORDERED: ONDANSETRON 4 MG/2 ML (SDV) Z0FRAN IVP PRN (15:00)
[2021-07-13] MEDS ORDERED: morphine INJ 10 MG/ML 1ML (SYR OR VIAL) IVP ONE (15:00)
[2021-07-13] MEDS ORDERED: KETOROLAC 30 MG/ML VIAL ONE (15:50)
--- NOTE | 2021-07-14 00:14 | OPERATIVE REPORT ---
DATE OF SERVICE: 07/13/2021 PREOPERATIVE DIAGNOSES: Dysfunctional uterine bleeding, intrauterine mass and history of endometrial polyps. POSTOPERATIVE DIAGNOSES: Dysfunctional uterine bleeding, intrauterine mass and history of endometrial polyps with likely cervical polyp as well. OPERATIVE DESCRIPTION: With the patient in supine position under satisfactory general anesthesia, she was repositioned in dorsal lithotomy position in the Silverio stirrups and prepped and draped in the usual fashion for vaginal surgery. Urinary bladder was drained with a straight catheter. A weighted speculum placed in posterior fornix of vagina, cervix exposed and grasped anteriorly with single tooth tenaculum. Uterus was sounded to 10 cm with uterine sound. The cervix was then serially dilated with Sylvester dilators to accommodate a hysteroscope, which was introduced and using LR as a distending medium, the endometrial cavity was examined. There was essentially a carpet of small polyps emanating from the posterior lateral wall of the uterus on each side. Systems Planner biopsies were taken from each side. The endometrial cavity was then sharply curettaged in all 4 quadrants to good uterine cry and that tissue was sent to pathology separately. On retracting the hysteroscope, there were several polyps noted in the cervical canal. Systems Planner biopsies were taken from that. Those tissues were removed. Those were sent to pathology labeled as question cervical polyp. The procedure complete. Essentially all of the distending medium that was used was recovered except for about 30 mL. There was no bleeding from the cervical os. There was no bleeding from the puncture sites from the tenaculum on the cervix. Sponge and needle counts were correct. Blood loss was minimal. The patient was now uneventfully awakened from her general anesthesia and transferred to recovery room in stable condition with plans for discharge home PAR. Job ID: [id number] DocumentID: [id number] Dictated Date: 07/13/2021 14:49:32 Sea Foam Kiss Maker Date: 07/14/2021 00:13:48 Dictated By: KALA ZIMMERMAN MD
== END 2021-07-13 16:45 ==
LOC: SDC 12:37
PROVIDERS: ATTEND Obstetrics & Gynecology
DX: N93.8 Other specified abnormal uterine and vaginal bleeding (principal); N84.0 Polyp of corpus uteri; N84.1 Polyp of cervix uteri; J45.909 Unspecified asthma, uncomplicated; K21.9 Gastro-esophageal reflux disease without esophagitis; N92.1 Excessive and frequent menstruation with irregular cycle; D25.9 Leiomyoma of uterus, unspecified; Z79.899 Other long term (current) drug therapy; Z90.49 Acquired absence of other specified parts of digestive tract
CPT/HCPCS: 36415; 84703; 85025; 87081; 88305